=== PATIENT | female | born 1980 | race Caucasian/White ===

== ENCOUNTER 2017-10-25 11:27 | Emergency (ER) | payer SELFPAY ==
[2017-10-25 11:35] VITALS: BP 113/70
[2017-10-25] MEDS ORDERED: IBUPROFEN 800 MG TABLET PO ONE (12:10)
[2017-10-25] MEDS ORDERED: CEPHALEXIN 500 MG CAPSULE PO ONE (12:10)
[2017-10-25] MEDS ORDERED: DIPH/PERTUSS(ACELL)/TETANUS VAC/PF 0.5 ML SYR (>=10YO) IM ONE (12:11)
[2017-10-25] MEDS ORDERED: ONDANSETRON 4 MG TAB.RAPDIS PO ONE (12:11)
--- NOTE | 2017-10-25 12:14 | ER Document Report ---
HPI - HPI Patient complains to provider of: Foot infection Onset: Other - 1-1/2 week Onset/Duration: Worse Quality of pain: Achy Pain Level: 3 Context: Patient states she was bit by fire ants about 10 days ago to the right foot. Patient states that she has been altering the way she walks due to the ant bites. Patient states that she has had increase in pain to the right midfoot area has worsened over the past few days. Patient states that the area on her foot has started to become red and she is worried about infection. Patient complains of nausea but denies any vomiting. Patient denies any additional injury. Patient without any fever. Associated Symptoms: Other - Right foot pain. denies: Fever Exacerbated by: Standing, Movement, Walking Relieved by: Denies Similar symptoms previously: No Recently seen / treated by doctor: No - ROS ROS below otherwise negative: Yes Systems Reviewed and Negative: Yes All other systems reviewed and negative - CONSTITUTIONAL Constitutional: DENIES: Fever - NEURO Neurology: DENIES: Weakness - GASTROINTESTINAL Gastrointestinal: REPORTS: Nausea. DENIES: Abdominal Pain, Patient vomiting - MUSCULOSKELETAL Musculoskeletal: REPORTS: Extremity pain, Swelling - DERM Skin Color: Erythema Notes: Insect bites to the right foot Past Medical History - General Information source: Patient - Social History Smoking Status: Never Smoker Frequency of alcohol use: None Drug Abuse: None Occupation: Lunch Cook Family History: Reviewed & Not Pertinent - Medical History Medical History: Negative Past Surgical History: Reports: Hx Gynecologic Surgery, Hx Orthopedic Surgery Vertical Provider Document - CONSTITUTIONAL Agree With Documented VS: Yes Exam Limitations: No Limitations General Appearance: WD/WN, No Apparent Distress - INFECTION CONTROL TRAVEL OUTSIDE OF THE [place] IN LAST 30 DAYS: No - HEENT HEENT: Atraumatic, Normocephalic - NECK Neck: Normal Inspection, Supple - RESPIRATORY Respiratory: Breath Sounds Normal, No Respiratory Distress - CARDIOVASCULAR Cardiovascular: Regular Rate, Regular Rhythm - GI/ABDOMEN Gastrointestinal: Abdomen Soft, Abdomen Non-Tender - BACK Back: Normal Inspection - MUSCULOSKELETAL/EXTREMETIES Musculoskeletal/Extremeties: MAEW, FROM, Tender - Right foot tenderness with 1+ edema. Tenderness localized to the midfoot area. Patient with faint area of erythema to dorsal aspect of right midfoot, Edema - NEURO Level of Consciousness: Awake, Alert, Appropriate Motor/Sensory: No Motor Deficit - DERM Integumentary: Warm, Dry Notes: Mild erythema to dorsal aspect of right foot near site of the healed insect bite Course - Re-evaluation Re-evalutation: 10/25/17 12:12 Patient presents - Vital Signs Vital signs: Temp Pulse Resp BP Pulse Ox 98.5 F 67 18 113/70 97 10/25/17 11:32 10/25/17 11:32 10/25/17 11:32 10/25/17 11:32 10/25/17 11:32 Discharge - Discharge Clinical Impression: Nausea, hx ant bite Cellulitis Qualifiers: Site of cellulitis: extremity Site of cellulitis of extremity: lower extremity Laterality: right Qualified Code(s): L03.115 - Cellulitis of right lower limb Condition: Stable Disposition: HOME, SELF-CARE Instructions: Anti-Inflammatory Medication ([facility]), Antinausea Medication ([facility]), Cephalexin ([facility]), Use of Crutches ([facility]), Swollen Insect Bite or Sting ([facility]) Additional Instructions: Return immediately for any new or worsening symptoms Followup with your primary care provider, call tomorrow to make a followup appointment Weightbearing as tolerated Prescriptions: Cephalexin Monohydrate [Keflex 500 mg Capsule] 500 mg PO Q6H 7 Days capsule Naproxen [Naprosyn 250 Nmg Tablet] 1 tab PO BID #14 tablet Ondansetron HCl [Zofran 4 mg Tablet] 1 - 2 tab PO Q6 PRN #15 tablet PRN Reason: Forms: Return to Work Referrals: [facility] [Provider Group] - Follow up as needed [facility] [Provider Group] - Follow up as needed
== END 2017-10-25 12:50 | disposition home or self-care (01) ==
LOC: ER 11:27
DX: L03.115 Cellulitis of right lower limb (principal); R11.0 Nausea; Z23 Encounter for immunization
CPT/HCPCS: 99283; 90471; 90715; S0119

== ENCOUNTER 2017-11-08 23:31 | Emergency (ER) | payer SELFPAY ==
[2017-11-09] MEDS ORDERED: CEPHALEXIN 500 MG CAPSULE PO ONE (01:24)
--- NOTE | 2017-11-09 01:29 | ER Document Report ---
ED General - General Chief Complaint: Foot Pain Stated Complaint: FOOT PAIN Time Seen by Provider: 11/08/17 23:57 Notes: Patient is a 36 year old female without chronic medical problems who presents with a proximally 1 month of swelling and pain to the dorsum of her right foot. The patient was seen 2 weeks ago for the same, diagnosed with a cellulitis secondary to fire ant bites. She was treated with a course of antibiotics. She reports that the redness and pain slightly improved but never completely resolved. She is returning today as she feels like in the recent days she has noticed progressively worsening pain and swelling to the area. The pain is described as a throbbing, aching, constant pain. Worsened by touching the area or walking. Nothing improves her pain. She denies a history of similar symptoms in the past. She has not seen her general doctor regarding today's concerns. She denies fever or constitutional symptoms. She denies any history of DVT or pulmonary embolus. No use of estrogen. TRAVEL OUTSIDE OF THE [place] IN LAST 30 DAYS: No - Related Data Allergies/Adverse Reactions: steroid Allergy (Uncoded 10/25/17 11:32) Past Medical History - General Information source: Patient - Social History Smoking Status: Never Smoker Frequency of alcohol use: None Drug Abuse: None Lives with: Spouse/Significant other Family History: Reviewed & Not Pertinent Renal/ Medical History: Denies: Hx Peritoneal Dialysis Past Surgical History: Reports: Hx Gynecologic Surgery, Hx Orthopedic Surgery Review of Systems - Review of Systems Notes: Constitutional: Negative for fever. HENT: Negative for sore throat. Eyes: Negative for visual changes. Cardiovascular: Negative for chest pain. Respiratory: Negative for shortness of breath. Gastrointestinal: Negative for abdominal pain, vomiting or diarrhea. Genitourinary: Negative for dysuria. Musculoskeletal: Positive for right lower extremity pain and swelling Skin: Positive for rash. Neurological: Negative for headaches, weakness or numbness. 10 point ROS negative except as marked above and in HPI. Physical Exam - Vital signs Vitals: Temp Pulse Resp BP Pulse Ox 98.0 F 82 16 106/60 99 11/08/17 23:38 11/08/17 23:38 11/08/17 23:38 11/08/17 23:38 11/08/17 23:38 Interpretation: Normal Notes: PHYSICAL EXAMINATION: GENERAL: Well-appearing, well-nourished and in no acute distress. HEAD: Atraumatic, normocephalic. EYES: Pupils equal round and reactive to light, extraocular movements intact, sclera anicteric, conjunctiva are normal. ENT: nares patent, oropharynx clear without exudates. Moist mucous membranes. NECK: Normal range of motion, supple without lymphadenopathy LUNGS: Breath sounds clear to auscultation bilaterally and equal. No wheezes rales or rhonchi. HEART: Regular rate and rhythm without murmurs ABDOMEN: Soft, nontender, normoactive bowel sounds. No guarding, no rebound. No masses appreciated. EXTREMITIES: Normal range of motion, 1+ pitting edema in the right lower extremity to the level just below the knee, not present on the left. There is pain on palpation of the calf and popliteal fossa on the right. NEUROLOGICAL: No focal neurological deficits. Moves all extremities spontaneously and on command. PSYCH: Normal mood, normal affect. SKIN: Warm, Dry, normal turgor, mild erythema to the dorsum of the right foot Course - Re-evaluation Re-evalutation: 11/09/17 01:26 Patient presents with 1 month of ongoing swelling and pain to the right foot that is now extended up the majority of her distal right lower extremity prosthesis a little edema. There is 1+ pitting edema in the right lower extremity below the level of the knee, none present on the left. Most probable cause is an ongoing cellulitis that caused reactive inflammation and edema. However I remain concerned about the possibility of a DVT particular given the duration of the patient's symptoms being 1 month from the time of the initial onset. The patient is also to complete her course of antibiotics and although she notes that she had initial improvement she did not complete resolution. We not currently have PVL available. I have offered that the patient can remain here in the emergency department for the test in the morning versus me writing an outpatient prescription for this to be completed. The patient is elected instead to return to the emergency department tomorrow morning at approximately 8 AM to have a venous Doppler ultrasound completed to definitively exclude a DVT. She did not wish to wait until Thursday for the outpatient ultrasound and did not want to wait in the emergency room overnight for this test. She will be restarted on cephalexin to cover for the high possibility that this is all secondary to infection. We will also complains compression stocking on the right lower extremity prior to discharge. At this time will discharge with return precautions and follow-up recommendations. Verbal discharge instructions given a the bedside and opportunity for questions given. Medication warnings reviewed. Patient is in agreement with this plan and has verbalized understanding of return precautions and the need for primary care follow-up in the next 24-72 hours. - Vital Signs Vital signs: Temp Pulse Resp BP Pulse Ox 97.9 F 79 16 116/67 98 11/09/17 02:13 11/09/17 02:13 11/08/17 23:38 11/09/17 02:13 11/09/17 02:13 Discharge - Discharge Clinical Impression: Edema of right lower extremity, Right foot pain, Cellulitis of right foot Condition: Good Disposition: HOME, SELF-CARE Additional Instructions: Please begin taking antibiotics that have been prescribed. You need to return to the emergency department in the morning for an ultrasound of your leg to exclude a blood clot as the cause of your symptoms. Please also wear the compression stocking that has been provided. Return to the emergency department sooner if you have worsening of your pain, fever of greater than 100.4F, vomiting, or any other symptoms that are worrisome to you. Prescriptions: Cephalexin Monohydrate [Keflex 500 mg Capsule] 500 mg PO Q6H 7 Days capsule
[2017-11-09 02:32] VITALS: BP 116/67
== END 2017-11-09 02:30 | disposition home or self-care (01) ==
LOC: ER 23:31
DX: T63.421A Toxic effect of venom of ants, accidental (unintentional), initial encounter (principal); L03.115 Cellulitis of right lower limb; R60.0 Localized edema; Z88.8 Allergy status to other drugs, medicaments and biological substances
CPT/HCPCS: 99283